=== PATIENT | male | born 1960 | race Caucasian/White ===

== ENCOUNTER 2023-03-08 10:24 | Emergency (ER) | payer OTHER ==
[~2023-03-08] VITALS: Ht 172.7 cm; Wt 94.5 kg
[2023-03-08] MEDS ORDERED: LIPI10TA PO (10:41)
[2023-03-08] MEDS ORDERED: JARD1TAB3 PO (10:41)
[2023-03-08] MEDS ORDERED: SEMA1PEN2 SQ (10:41)
[2023-03-08] MEDS ORDERED: METF-817 PO (10:41)
[2023-03-08] MEDS ORDERED: KETOROLAC 30 MG/ML 1ML VIAL IM ONE (11:30)
[2023-03-08] MEDS ORDERED: LIDOCAINE 1% MDV 20ML VIAL IM ONE (11:30)
[2023-03-08] MEDS ORDERED: cefTRIAXone SOD 2 GM in D5W MINI-BAG PLUS 50 ML IV ONE (12:35)
[2023-03-08] MEDS ORDERED: NEOSPORIN TOP OINT 15GM TOP ONE (12:35)
[2023-03-08] MEDS ORDERED: TETANUS/DIPHTHERIA TOX ADSORB ADULT 0.5ML SYR/VIAL IM ONE (12:35)
[2023-03-08] MEDS ORDERED: cefTRIAXone SOD 1GM VIAL IM ONE (12:45)
[2023-03-08] MEDS ORDERED: LIDOCAINE 1% SDV 5ML VIAL DILUENT ONE (12:45)
[2023-03-08] MEDS ORDERED: AMOX500C PO (12:57)
[2023-03-08] MEDS ORDERED: HYDR-4517 PO (12:57)
[2023-03-08] MEDS ORDERED: IBUP80TA PO (12:57)
[2023-03-08] MEDS ORDERED: BOOSTRIX VACCINE (TETANUS/DIPHTH/ACEL. PERTUSSIS) 0.5ML SYR IM ONE (13:05)
[2023-03-08 13:35] VITALS: BP 132/70; TEMP 98.7; O2SAT 99
== END 2023-03-08 13:54 | disposition home or self-care (01) ==
LOC: M ED 10:24
DX: S62.631B Displaced fracture of distal phalanx of left index finger, initial encounter for open fracture (principal); W34.00XA Accidental discharge from unspecified firearms or gun, initial encounter; Y92.89 Other specified places as the place of occurrence of the external cause; Y93.89 Activity, other specified; Y99.8 Other external cause status; E11.9 Type 2 diabetes mellitus without complications; Z79.4 Long term (current) use of insulin; Z88.5 Allergy status to narcotic agent; Z79.899 Other long term (current) drug therapy; Z79.84 Long term (current) use of oral hypoglycemic drugs
CPT/HCPCS: 73140; 90715; 96372; 99284; J0696; J1885